=== PATIENT | female | born 1960 | race American Indian/Alaskan Native ===

== ENCOUNTER 2018-06-07 07:52 | Day surgery (SDC) | payer OTHER ==
[~2018-06-07 07:52] MED LIST: ANCEF/STERILE WATER 2 GM/20 ML 2 GM/20 ML SYRINGE IV NR; NACL 0.9% 1000 ML 1,000 ML IV SCH
[2018-06-07] MEDS ORDERED: VERSED IV NR (08:26)
--- NOTE | 2018-06-07 08:29 | Short Stay Summary ---
Short Stay Documentation Date of service: 06/07/18 - History Principal diagnosis: Dialysis access malfunction Past Medical History: dialysis, ESRD Past Surgical History: Other (right chest wall HD catheter) Social history: no significant social history - Allergies and Medications Current Medications: Allergies No Known Allergies Allergy (Verified 01/19/16 03:33) Home Medications Medication Instructions Recorded Confirmed Last Taken Type No Known Home Medications [No 01/19/16 01/19/16 Unknown History Reported Home Medications] Active Medications Midazolam HCl (Versed) 1 mg IV ONCE ONE Stop: 06/07/18 08:27 - Physical exam General appearance: no acute distress Integumentary: no rash, no growths HEENT: Atraumatic Lungs: Normal air movement Breasts: deferred Heart: Regular rate Gastrointestinal: normal Female Genitourinary: deferred Rectal Exam: deferred Extremities: no ischemia Neurological: Normal gait, Normal speech - Brief post op/procedure progress note Date of procedure: 06/07/18 Pre-op diagnosis: dialysis access malfunction Post-op diagnosis: same Procedure: Fluoroscopic guided exchange of tunneled hemodialysis catheter Anesthesia: local Surgeon: MIAH FRAIRE Estimated blood loss: minimal Pathology: none Condition: stable - Disposition Condition at discharge: Good Disposition: DC-01 TO HOME OR SELFCARE Short Stay Discharge Plan Activity: advance as tolerated Weight Bearing Status: Weight Bear as Tolerated Diet: regular Wound: keep clean and dry, per your surgeon's advice Follow up with: CRISTÓBAL GRANT MD [Primary Care Provider] - 7 Days
[2018-06-07] MEDS ORDERED: XYLOCAINE 1% 20 mL ONE (09:48)
[2018-06-07] MEDS ORDERED: HEPARIN/NS 5000 UNIT/500ML(CATH LAB) 500 ML IR ONE (09:48)
[2018-06-07] MEDS ORDERED: NACL 0.9% 250ML 250 ML ONE (10:01)
[2018-06-07] MEDS: SUBLIMAZE ONE ×2 (10:18→10:25)
[2018-06-07] MEDS: VERSED ONE ×2 (10:18→10:22)
[2018-06-07] MEDS: BENADRYL ONE ×2 (10:22→10:24)
[2018-06-07] MEDS: HEPARIN 10,000 UNITS/10 ML ONE ×2 (10:31→10:32)
--- NOTE | 2018-06-07 11:30 | Operative Report ---
Operative Report Operative Report: Exam: Fluoroscopic guided exchange of tunneled hemodialysis catheter Clinical indication: Patient with thrombosed dialysis catheter secondary to the use of TEGO caps. Date: 06/07/2018 Procedure: Following an explanation of the risks, benefits and alternatives; written informed consent was obtained. The patient was brought to the idiopathic suite and placed in supine position on the examination table. Initial fluoroscopic imaging demonstrated appropriate positioning of the patient's indwelling tunneled hemodialysis catheter. The patient's right chest wall and catheter were prepped and draped in the usual sterile fashion. 1% lidocaine was used for anesthesia at the catheter exit site and along the contract. The catheter cuff was dissected free catheter withdrawn proximally. A 0.035 guidewire was advanced to the arterial lumen into the IVC under fluoroscopy to document intravenous positioning and for anchoring. A second 0.035 guidewire was advanced through the venous lumen into the IVC under fluoroscopy for anchoring. The indwelling catheter was then removed intact. A new Bard 23 cm tunneled hemodialysis catheter was then tunneled antegrade over the guidewires. Guidewires were removed. The catheter flushed and aspirated easily and was unlocked with appropriate volumes of heparin. The catheter exit site was approximated using 3-0 Vicryl suture. A sterile dressing was applied. The patient tolerated the procedure well. There were no immediate post procedure complications. Conscious sedation was performed under the guidance of radiologic nursing. Continuous cardiopulmonary monitoring was utilized. Impression: Fluoroscopic guided exchange of tunneled hemodialysis catheter.
[2018-06-07 11:40] VITALS: BP 106/59
== END 2018-06-07 11:55 | disposition home or self-care (01) ==
LOC: CATHLABREC 07:52
PROVIDERS: ATTEND Radiology Diagnostic Radiology
DX: T82.868A Thrombosis due to vascular prosthetic devices, implants and grafts, initial encounter (principal); N18.6 End stage renal disease; F17.210 Nicotine dependence, cigarettes, uncomplicated; Z79.899 Other long term (current) drug therapy; Z79.82 Long term (current) use of aspirin; Z78.9 Other specified health status; Z91.19 Patient's noncompliance with other medical treatment and regimen; Y83.8 Other surgical procedures as the cause of abnormal reaction of the patient, or of later complication, without mention of misadventure at the time of the procedure; Y92.89 Other specified places as the place of occurrence of the external cause
CPT/HCPCS: 36415; 36581; 77001; 84132; 99156; 99157; C1750; C1769; J1200; J1644; J2250; J3010; J7050